=== PATIENT | female | born 1975 | race Caucasian/White ===

== ENCOUNTER → 2017-10-08 14:17 | Outpatient (CLI) | payer OTHER, MEDICAID, SELFPAY ==
--- NOTE | 2017-10-08 | DI.RAD.S_ITS ---
PROCEDURE: FL BARIUM SWALLOW W SPEECH INDICATIONS: DIFFICULTY SWALLOWING/ASPIRATION OF FOOD TECHNIQUE: Examination was conducted in conjunction with speech pathology per standard protocol. In the lateral projection, filming was performed of the patient swallowing. AP projection filming may also be performed with patient swallowing. COMPARISON: Prior esophagram [facility].. FINDINGS: Function: The oral preparatory phase appears normal, with proper containment. The subsequent oral propulsive phase, pharyngeal phase, and esophageal phase of swallowing also appear normal with all proffered substances. No laryngotracheal penetration or aspiration. No pathologic vallecular pooling. Morphology: No cricopharyngeal bar is identified. No cervical esophageal webs. No Zenker's diverticulum. No strictures. IMPRESSION: Normal swallowing evaluation, no aspiration seen. Please also refer to the dedicated speech therapy swallowing evaluation that will be independently generated. Dictated by: Kevon Rodriguez M.D. on 10/08/2017 at 15:10 Approved by: Kevon Rodriguez M.D. on 10/08/2017 at 15:10
--- NOTE | 2017-10-08 16:34 | ST.SWALLOW ---
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 Payne. Dr. Payne had referred Annalise (Gladys) for an esophagram during which the radiologist observed silent aspiration with no cough response. 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 She reported that she had a cough for approximately 4 months prior to seeing her physician. She also noticed a lump in her neck and she was diagnosed with fatigue. After the aspiration was noted with the esophogram, she DrRohit Sandoval at [facility], who reported no concerns. Further, a chest x-ray was performed to rule out a thoracic aortic aneurysm as the cause of the lump in her neck. Patient Positioning Position View Lateral Imaging Lateral View Textures Administered Trials Presented Thin Liquid via Spoon Thin Liquid via Cup [place] Liquid via Spoon [place] Liquid via Cup Pudding Thick Liquid via Spoon Regular Textures Oral Phase Source: MBSIMP (TM) (C) Bolus Specific Scoring Grid Lip Closure WFL Tongue Control During Bolus Hold WFL Bolus Prep/Mastication WFL Bolus Transport/Lingual Motion WFL A/P Lingual Propulsion Delay No Oral Residue WFL Residue Clearing WFL Nasal Regurgitation No Pharyngeal Phase Source: MBSIMP (TM) (C) Bolus Specific Scoring Grid Delayed Initiation of Pharyngeal Swallow No Soft Palate Elevation No Impairment (WNL) Tongue Base Strength/Range of Motion No Impairment (WNL) Residue Along the Tongue Base No Clearance of Residue Along Tongue Base No Impairment (WNL) Laryngeal Elevation No Impairment (WNL) Anterior Hyoid Movement No Impairment (WNL) Epiglottic Range of Motion No Impairment (WNL) Vallecular Residue Yes: Mild pooling of thin liquids Clearance of Vallecular Residue WFL Laryngeal Vestibular Closure WFL Pharyngeal Stripping Wave No Impairment (WNL) Pharyngeal Contraction No Impairment (WNL) Posterior Pharyngeal Wall Residue No Clearance of Posterior Pharyngeal Wall WFL Residue Upper Esophageal Sphincter Opening WFL Residue in the Pyriform Sinuses No Clearance of Residue in the Pyriform WFL Sinuses Esophageal Clearance Upright Position WFL Pharyngoesophageal Backflow Observed No A/P View Clinical Impressions Dysphagia Type Swallow appears to be WFL Findings Swallow was observed to be WFL . Gladys reported that she had received 2 courses of antibiotics after which the lump in her throat went away and she began to feel better. Her cough is reported to be gone. Patient Appropriate for Therapy No Recommendations Diet Liquids Order Thin Diet Order Regular
== END ==
PROVIDERS: PCP Family Medicine; Visit Provider Obstetrics & Gynecology
DX: R13.10 Dysphagia, unspecified (principal); T17.920A Food in respiratory tract, part unspecified causing asphyxiation, initial encounter
CPT/HCPCS: 74230; 92611